=== PATIENT | male | born 1955 | race Caucasian/White ===

== ENCOUNTER 2024-05-25 08:59 | Emergency (ER) | payer OTHER ==
[~2024-05-25] VITALS: Ht 170.2 cm; Wt 78.2 kg
[2024-05-25 09:12] VITALS: BP 139/80; PULSE 68; RESP 18; O2SAT 97
[2024-05-25] MEDS ORDERED: CEPH500C PO (09:52)
== END 2024-05-25 10:11 | disposition home or self-care (01) ==
LOC: ER 08:59
DX: S61.442A Puncture wound with foreign body of left hand, initial encounter (principal); X58.XXXA Exposure to other specified factors, initial encounter; Y93.89 Activity, other specified; Y92.89 Other specified places as the place of occurrence of the external cause; Y99.8 Other external cause status